=== PATIENT | female | born 1990 | race Caucasian/White ===

== ENCOUNTER → 2017-09-17 | Outpatient (CLI) | payer BC ==
[~2017-09-17] MED LIST: PRENTAB69 PO
--- NOTE | 2017-09-17 10:56 | DIAGNOSTIC IMAGING REPORT ---
PELVIC COMPLETE NON OB HISTORY: 26 years-old Female EXCESSIVE AND FREQUENT MENSTRUATION acute vaginal bleeding COMPARISON: Pelvic ultrasound 10/13/2011 TECHNIQUE: Multiple real-time sonogram images of the deep pelvic structures were obtained transabdominally and transvaginally assessing grayscale appearance, color and spectral flow FINDINGS: TRANSABDOMINAL: Pelvic structures are not well seen. TRANSVAGINAL: Retroflexed uterus measures 8.1 x 4.4 x 5.6 cm. Endometrium measures 0.5 cm and is homogeneous. There is a 2 mm cystic structure noted at the fundal portion of the endometrium suggesting a endometrial cyst. No myometrial mass lesions identified. Right ovary measures 3.4 x 2.2 x 2.1 cm and is unremarkable with arterial inflow documented. The left ovary measures 3.4 x 1.8 x 2.4 cm and is also within normal limits with arterial inflow documented. There is no significant free pelvic fluid. IMPRESSION: 1. 2 mm cystic structure of the fundal endometrium may reflect loculated endometrial fluid, endometrial cyst or less likely a small gestational sac. Correlate with qualitative beta hCG analysis. 2. Retroflexed uterus. 3. Unremarkable sonographic appearance of the ovaries without evidence of torsion. The above report was generated using voice recognition software. It may contain grammatical, syntax or spelling errors. Electronically signed by: Daquan Cerna M.D. 09/17/2017 10:55 AM Dictated Date/Time: 09/17/2017 10:52 AM
== END | disposition home or self-care (01) ==
LOC: C.ULTRBC 09:49
PROVIDERS: ATTEND Family Medicine
DX: N92.0 Excessive and frequent menstruation with regular cycle (principal); R93.8 Abnormal findings on diagnostic imaging of other specified body structures; N85.4 Malposition of uterus

== ENCOUNTER → 2017-10-17 | Outpatient (CLI) | payer BC | END | disposition home or self-care (01) | LOC: C.PAPS 08:26 | PROVIDERS: ATTEND Family Medicine | DX: Z12.72 Encounter for screening for malignant neoplasm of vagina (principal) ==